=== PATIENT | male | born 1995 | race Caucasian/White ===

== ENCOUNTER 2016-08-13 09:34 | Emergency (ER) | payer OTHER | END 2016-08-13 14:59 | disposition home or self-care (01) | LOC: ER 09:34 | DX: F15.129 Other stimulant abuse with intoxication, unspecified (principal); F10.10 Alcohol abuse, uncomplicated; F17.210 Nicotine dependence, cigarettes, uncomplicated | CPT/HCPCS: 36415; 70450; 80053; 80307; 80320; 80329; 81003; 85025; 85610; 85730; 93005; 96360 ==